=== PATIENT | female | born 1955 | race Caucasian/White ===

== ENCOUNTER 2024-02-02 06:27 | Day surgery (SDC) | payer MEDICARE, BC, SELFPAY ==
[2024-02-02] VITALS (9 sets, daily range): BP systolic 107–141; BP diastolic 70–80; PULSE 62–75; RESP 16–20; TEMP 37.1; O2SAT 97–100; BMI 27.4
[2024-02-02] MEDS: ETHYL CHLORIDE 1 APPLICATION 1 APPLIC TOPICAL (07:00)
[2024-02-02] MEDS: BUPIVACAINE 0.5% 30 ML INJECTION (07:00)
--- NOTE | 2024-02-02 07:17 | SUR.PREOP ---
SAME DAY SURGERY LOCAL INJECTION SITE VERIFICATION WAS PERFORMED BY SURGEON/PA AND PATIENT PRIOR TO LOCAL ANESTHETIC BEING INJECTED TO OPERATIVE SITE.
[2024-02-02] MEDS: NEOMYCIN/BACITRACIN/POLYMYXIN B 1 APPLIC TOPICAL (07:45)
--- NOTE | 2024-02-02 07:45 | PM.ORPRC ---
Procedure Note Date of procedure: 02/02/24 Procedure: PREOPERATIVE DIAGNOSIS: 1. Right carpal tunnel syndrome POSTOPERATIVE DIAGNOSIS: 1. Right carpal tunnel syndrome PROCEDURE: 1. Right open carpal tunnel release SURGEON: Quang Flores MD. OUTSIDE SALES ACCOUNT REPRESENTATIVE: LINDSEY Shields ANESTHESIA: Local anesthetic (50:50 mixture of 2% lidocaine with epi and 0.5% marcaine plain) - 10ml total IMPLANTS: None EBL: 2 mL TOURNIQUET: None COMPLICATIONS: None evident INDICATIONS: The patient is a pleasant 68-year-old female who has experienced right hand numbess/tingling affecting the radial 3.5 digits for multiple months. It has progressively gotten worse. Nonoperative management has been tried and failed, and therefore surgery was recommended. DESCRIPTION OF PROCEDURE: Following a thorough discussion of risks, benefits, and alternatives consent was obtained and the operative extremity was marked. The patient was brought to the operating room and placed supine on the operating table. Local anesthesia induction was undertaken in preop holding. No antibiotics were administered as this was planned to be a local case only. Proper time-out was performed identifying proper patient, site, and procedure. The operative extremity was prepped and draped in the appropriate sterile fashion using ChloraPrep. An incision was made in line with the radial border of the ring finger beginning 1 cm distal to the distal wrist crease and progressing for another 2.5cm distal. Caution was taken to stay proximal to Davis's cardinal line. Sharp incision through the skin, subcutaneous tissue, and palmar fascia was performed. The thenar musculature was bluntly elevated off the transverse carpal ligament. The ligament was directly visualized, and divided sharply with a 15 blade. This was released from its most proximal to the most distal extent. Metzenbaum scissor was also utilized to release the fascia extension proximally. We confirmed complete release of the transverse carpal ligament. Closure was performed with 4-O nylon in interrupted fashion. Soft dressings were applied, and the patient was transferred to the recovery room in stable condition. PLAN: 1. Encourage elevation of the operative extremity. 2. Range of motion of the fingers and hand/wrist as tolerated. 3. Ibuprofen/acetaminophen and/or oxycodone as needed for pain control. 4. Follow up with PA visit or nurse visit in 12-16 days for wound check and suture removal.
== END 2024-02-02 08:07 | disposition home or self-care (01) ==
PROVIDERS: PCP Family Medicine; Visit Provider Orthopaedic Surgery Sports Medicine
PROC: (CPT 64721; principal; 2024-02-02 07:30)
DX: G56.01 Carpal tunnel syndrome, right upper limb (principal)
CPT/HCPCS: 64721; J0665

== ENCOUNTER 2024-08-30 06:49 | Day surgery (SDC) | payer MEDICARE, BC, SELFPAY ==
[2024-08-30] VITALS (8 sets, daily range): BP systolic 104–128; BP diastolic 65–86; PULSE 61–69; RESP 16–20; TEMP 36.2–36.6; O2SAT 98–100; BMI 27.4
[2024-08-30] MEDS: BUPIVACAINE 0.5% 30 ML INJECTION (06:50)
[2024-08-30] MEDS: ETHYL CHLORIDE 1 APPLICATION 1 APPLIC TOPICAL (06:50)
--- OUTSIDE RECORDS SUMMARY | 2024-08-30 06:51 | XMS_ITS | Clinical Summary ---
Author Organization [employer] [facility] Address [place], [place] [address] Care Team Providers Care Dental Appliance Mechanic Name Role Phone AdamarisBrigitte alaniz MD Primary Care Provider Allergies No known active allergies Medications Medication Sig Dispensed Refills Start Date End Date Status ORDER - MEDICATION ORDER COMPOSER Take 1 tsp by mouth. OTC supplement, Azomite. 1 tsp daily. 0 02/28/2010 Active cholecalciferol (VITAMIN D) 1,000 unit capsule Take 1 capsule by mouth once daily. 0 10/10/2018 Active bylrsqhc-poacnuhvl-vif rocortisone (CORTISPORIN OTIC) otic suspensionIndications: Otitis externa, unspecified chronicity, unspecified laterality, unspecified type Place 3 Drops into both ears 3 times daily. 10 mL 12/19/2021 Active durable medical equipment (DME)Indications:Back pain, unspecified back location, unspecified back pain laterality, unspecified chronicity,Chronic left shoulder pain Massage therapy, once/month for back and shoulder pain 12 Each 12/23/2023 Active Active Problems Problem Noted Date Diagnosed Date Pap smear for cervical cancer screening 01/07/20 23 Overview (01/07/2023): Plan: Routine Screening Adjustment disorder 11/28/2019 Adenomatous colon polyp 01/05/2019 Overview (01/08/2023): Colonoscopy 12/2018 multiple large SSA, repeat in 6 months at [facility] Colonoscopy 05/2019 polyps, repeat in 3 years Colonoscopy 12/2022 SSA, repeat in 3 years, possible serrated polyposis Resolved Problems Problem Noted Date Diagnosed Date Resolved Date Adjustment disorder with mix ed anxiety and depressed mood 05/22/2014 11/28/2019 Adjustment disorder with mix ed anxiety and depressed mood 10/10/2008 04/07/2013 Other and unspecified ovarian cyst 01/14/2009 Immunizations Name Administration Dates Next Due COVID-19 vaccine (Jerry-J& J) PF, MDV 02/08/2021 COVID-19 vaccine (Moderna 100mcg/0.5mL) PF, MDV 09/23/2021 COVID-19 vaccine (Pfizer-Bio NTech 30mcg/0.3mL) 12YO+ BIVALENT PF, MDV 04/12/2023 COVID-19 vaccine (Pfizer-Bio NTech 30mcg/0.3mL) 12YO+ KD-SUCROSE PF, MDV 03/16/2022 Influenza Virus, Unspecified 08/19/2021 Influenza, IIV3 (Age >=3 years) 08/24/2011,08/29 Influenza, IIV4 08/25/2018,08/30/2014,09/04/2013 Influenza, IIV4 (=>6mos) MDV 08/21/2020, 08/25/2018,08/26/2017,2015,09/11/2015 Influenza, Inactivated AIIV4 (Age 65+ Years) Preserv Free 08/23/2023 Influenza, Injectable, Mdck, Quadrivalent, W/preservative 09/29/2022,08/19/2021 Pneumococcal Conj 20-valent (Prevnar 20) 12/21/2022 Td (Age >=7 Years) 12/29/2005 Tdap 12/19/2021,03/21/2012 Zoster (Shingrix-RZV, recombinant) 05/01/2019, Family History Medical History Relation Name Comments Good Health Brother 2 Cancer Father melanoma @ age 65 went to the colon Cancer-breast Maternal Aunt Cancer Maternal Grandmother ovarian Cancer-breast Maternal Grandmother Cancer-breast Mother age 63, 4x reo ccuarance Cancer-breast Other cousin Hypertension Sister 4 Thyroid Disease Sister 5 hypothyroid Good Health Sister 6 Cancer-ovarian No Family History Relation Name Status Comments Brother 1 Alive Brother 2 Father Maternal Aunt Maternal Grandmother Mother Alive Other cousin Alive Sister 1 Alive Sister 2 Alive Sister 3 Alive Sister 4 Sister 5 Sister 6 Social History Tobacco Use Types Packs/Day Years Used Date Smoking Tobacco: Never Smokeless Tobacco: Never Tobacco Cessation:Counseling Given: Yes Alcohol Use Standard Drinks/Week Comments Not Currently 20 (1 standard drink = 0.6 oz pu re alcohol) Stopped 08/2019 PHQ-2 Answer Date Recorded PHQ-2 TOTAL SCORE 0 12/23/2023 Social Connections Answer Date Recorded Frequency of Communication with Friends and Fami ly Not on file 12/22/2023 Financial Resource Strain Answer Date R ecorded Difficulty of Paying Living Expenses 3 12/21/2022 Difficulty of Paying Living Expenses Not on file 12/21/2022 Food Insecurity Answer Date Recorded Worried About Running Out of Food in the Last Ye ar 1 12/21/2022 Transportation Needs Answer Date Record ed Lack of Transportation (Medical) 1 12/21/2022 Housing Stability Answer Date Recorded Unable to Pay for Housing in the Last Year 1 12/21/2022 Sex and Gender Information Value Date Recorded Sex Assigned at Not on file Gender Identity Not on file Sexual Orientation Not on file Obstetrics History Last Filed Vital Signs Vital Sign Reading Time Taken Comments Blood Pressure 97/63 12/23/2023 7:58 AM DIRECTOR MED[facility] A[facility]AIRS Pulse 63 12/23/2023 7:58 AM DIRECTOR MED[facility] AFFAIRS Temperature 36.8 ??C (98.3 ??F) 03/15/2023 10:05 AM C DT Respiratory Rate 14 01/05/2023 3:55 PM [facility] MED[facility] AFFAIRS Oxygen Saturation 99% 12/23/2023 7:58 AM DIRECTOR MED[facility] AFFAIRS Inhaled Oxygen Concentration - - Weight 75.4 kg (166 lb 3.2 oz) 12/23/2023 7:58 A M [facility] Height 165.1 cm (5' 5) 12/23/2023 7:58 AM [facility] MED[facility]AIRS Body Mass Index 27.66 12/23/2023 7:58 AM DIRECTOR MEDICAL AFFAIRS Plan of Treatment Health Maintenance Due Date Last Done Comments COVID-19 vaccine series ( season) 2024 09/20/2023, 04/12/2023, 08/17/2022, Additional history exists Influenza for age 65+ 07/30/2024 08/23/2023 , 09/29/2022, 08/19/2021, Additional history exists BMI (ht and wt on same day) for age 18+ 12/23/2024 12/23/2023, 08/23/2023, 12/21/2022, Additional history exists Depression screening for age 12+ 12/23/2024 12/23/2023, 12/23/2023, 12/21/2022, Additional history exists Mammogram for age 45-75 12/23/2024 12/23/19 24, 12/21/2022, 12/17/2021, Additional history exists Medicare Wellness for age 65+ 12/23/2024 12/23/2023, 12/21/2022 Lipids for age 45-75 12/16/2025 12/16/2020, 08/18/2016, 07/19/2015, Additional history exists Colonoscopy through age 75 01/05/202601/05, 01/05/2023, 06/19/2019, Additional history exists Tetanus booster 12/19/2031 12/19/2021, 02/28, 12/29/2005 Hepatitis C screening for ag e 18-79 Completed 07/19/2015 Zoster (shingles) series for age 50+ Completed 05/01/2019, 01/06/2019 Tdap Completed 12/19/2021, 03/21/2012 DEXA/DXA scan for age 65+ Completed 12/21/2022 Pneumococcal series for age 65+ Completed 3 Procedures Procedure Name Priority Date/Time Associated Diagnosis Comments XR MAMMO NALINI BILAT SCREEN Routine 12/23/2023 7:20 AM DIRECTOR MED[facility] A[facility]AIRS Visit for screening mammogram COLONOSCOPY 01/05/2023 2:19 PM DIRECTOR MEDICAL AFFAIRS XR DXA BONE DENSITY 2 SITES AXIAL Routine 12/21/2022 11:45 AM DIRECTOR MEDICAL AFFAIRS Menopause LIPID PANEL W REFLEX MEASURED LDL Routine 12/16/2020 8:55 AM DIRECTOR MEDICAL AFFAIRS Lipid screening ANTI HCV Routine 07/19/2015 7:28 AM CDT Need for hepatitis C screening test from Last 3 Months or Most Recently Relevant to Health Maintenance Results * XR MAMMO NALINI BILAT SCREEN (12/23/2023 7:20 AM DIRECTOR MEDICAL AFFAIRS) Anatomical Region Laterality Modality BREASTS, Breast Left, Breast Right Bilateral Mammography Impressions 12/23/2023 2:06 PM DIRECTOR MEDICAL AFFAIRS ??There is no radiographic evidence for malignancy. ??Recommend annual mammograms. MAMMOGRAM ASSESSMENT: ??ACR 1 Negative PATIENTS: You will also receive a letter with your examination results in an easy to read format. ??If you have questions about your results, please contact your referring provider. Narrative 12/23/2023 2:06 PM DIRECTOR MEDICAL AFFAIRS For Patients: As a result of the Century Cures Act, medical imaging exams and procedure reports are released immediately into your electronic medical record. You may view this report before your referring provider. If you have questions, please contact your health care provider. XR MAMMO NALINI BILAT SCREEN [[id number]] CLINICAL HISTORY: ??This is an asymptomatic 68 y.o. patient. INDICATION FOR EXAM: Mammogram Screening. TECHNIQUE: CC & MLO views were obtained. ??This study was evaluated with the assistance of Computer-Aided Detection. Breast Tomosynthesis was used in interpretation. COMPARISON FILM: Yes 12/21/22 [facility] 12/17/21 [facility] FINDINGS: ??The breasts are heterogeneously dense, which may obscure small masses. There are no dominant masses, suspicious micro calcifications or areas of architectural distortion. Brigitte Bailon MD MAMMO * COLONOSCOPY (01/05/2023 2:19 PM DIRECTOR MEDICAL AFFAIRS) 01/05/2023 2:19 PM DIRECTOR MEDICAL AFFAIRS Narrative Transcriptions Omid Avila MD - 01/05/2023 3:46 PM CST Patient Name: Nubia Romo Procedure Date: 01/05/2023 Gender: Female Date of : 1955 Admit Type: Outpatient Procedure: Colonoscopy Proceduralist: Omid Avila MD , Gabrielle Rossi (Nurse), Addis Castillo (Nurse) Indications/Pre-Op Diagnosis: High risk colon cancer surveillance:Personal history of sessile serrated colon polyp (10mm or greater in size), High risk colon cancer surveillance: Personal history of Serrated Polyposis Syndrome Medications: Fentanyl 100 micrograms IV, Midazolam 2 mgIV Procedure Description: The patient had risks, benefits and alternatives explained to andgave informed consent. The patient had a stable cardiopulmonary status and judged an adequate candidate for conscious sedation. The [id number] was passed through the anus and advanced to the cecum, identified by appendiceal orifice and ileocecal valve. Thecolonoscopy was performed without difficulty. The patient tolerated the procedure well. The quality of the bowel preparation was good. The ileocecal valve, appendiceal orifice, and rectum were photographed. Complications: No immediate complications. Estimated Blood Loss & Specimen: Estimated blood loss: none. Specimen collected - Yes and sent to Laboratory Findings: The perianal and digital rectal examinations were normal. A 3 mm polyp was found in the cecum. The polyp was sessile. The polyp was removed with a cold snare. Resection was complete, but the polyp tissue was not retrieved. A 4 mm polyp was found in the ascending colon. The polyp was sessile. The polyp was removed with a cold snare. Resection and retrieval were complete. An 8 mm polyp was found in the distal ascending colon. The polyp was sessile. The polyp was removed with a hot snare. Resection andretrieval were complete. A 3 mm polyp was found in the rectum. The polyp was sessile. Thepolyp was removed with a cold snare. Resection and retrieval werecomplete. The exam was otherwise without abnormality. Impressions/Post-Op Diagnosis: - One 3 mm polyp in the cecum, removed with a cold snare. Complete resection. Polyp tissue not retrieved. - One 4 mm polyp in the ascending colon, removed with a cold snare. Resected and retrieved. - One 8 mm polyp in the distal ascending colon, removed with a hot snare. Resected and retrieved. - One 3 mm polyp in the rectum, removed with a cold snare. Resectedand retrieved. - The examination was otherwise normal. Recommendation: - Patient has a contact number available for emergencies. The signsand symptoms of potential delayed complications were discussed with the patient. Return to normal activities tomorrow. Written discharge instructions were provided to the patient. - Resume previous diet. - Continue present medications. - Await pathology results. - Repeat colonoscopy in 3 years for surveillance. - Avoid heavy lifting greater than 30 lbs., asprin/ nonsteroidal medicines, exercise and strenuous activity for 2 weeks. Moderate Sedation: A time out was performed before the procedure. Moderate (conscious) sedation was administered by the endoscopy nurse and supervised bythe endoscopist. The following parameters were monitored: oxygensaturation, heart rate, blood pressure, EKG, CO2, respiratory rate, adequacy of pulmonary ventilation and reponse to care. Please refer to the patient's medical record flowsheets and nursing notes for moderate sedation details. Total physician intraservice time was 32 minutes. Omid Avila MD 01/05/2023 3:46:08 PM This report has been signed electronically. Note Initiated On: 01/05/2023 2:19 PM Procedure Code(s): --- Professional --- 13361, Colonoscopy, flexible; with removalof tumor(s), polyp(s), or other lesion(s) bysnare technique Diagnosis Code(s): --- Professional --- D12.0, Benign neoplasm of cecum D12.2, Benign neoplasm of ascending colon D12.8, Benign neoplasm of rectum Z86.010, Personal history of colonicpolyps CPT copyright 2020 [employer]. All rights reserved. The codes documented in this report are preliminary and upon hospice social worker reviewmay be revised to meet current compliance requirements. Scope In: 3:02:09 PM Scope Withdrawal Time 0 hours 21 minutes 18 seconds Scope Out: 3:32:27 PM Omid Avila MD PROCEDURE ORD * (ABNORMAL) XR DXA BONE DENSITY 2 SITES AXIAL [07415.1] (12/21/2022 11:45 AM DIRECTOR MEDICAL AFFAIRS) Anatomical Region Laterality Modality Spine, HIPS, HIPL, HIPR Other Impressions 12/23/2022 11:19 AM DIRECTOR MEDICAL AFFAIRS Osteopenia. RECOMMENDATIONS: The National Osteoporosis Foundation recommends pharmacologic treatment for patients with T-scores of -2.5 or less, patients with prior history of fragility fractures, or patients with 10-year probability of greater than 3% at hips or greater than 20% of suffering major osteoporotic fractures. Recommend continued optimization of calcium and vitamin D intake through dietary means and/or supplementation and regular exercise. Repeat scan recommended in 3-5 years. Chelsea Nicole PA-C [facility] 12/23/2022 Narrative 12/23/2022 11:19 AM DIRECTOR MEDICAL AFFAIRS For Patients: Results are automatically released to your [facility] account once available, in compliance with federal regulations. This means that you may see your results before your provider has had a chance to review them. Please allow 2-3 business days for your provider to comment on the results. XR DXA Bone Mineral Density (BMD) EXAM LOCATION: [address] [address] PATIENT NAME: Nubia Romo DATE OF : 1955 EXAM DATE: 12/21/2022 REQUESTING PROVIDER: Brigitte Bailon MD GENDER AT : female HEIGHT: 5' 5 (12/21/2022) WEIGHT: ??161 lb 6.4 oz (12/21/2022) MENOPAUSAL STATUS: Postmenopausal RACE/ETHNICITY: White RISK FACTORS: Alcohol > 3 drinks/day (prior), History of Fragility Fracture (at a major site) and White Race CURRENT MEDICATION FOR BONE LOSS: NONE INDICATION: Menopause COMPARISON DATE(S): None DXA scans are compared to prior studies for a patient only when the two (or more) studies were performed on the same scanner. It is not possible to compare data generated on one scanner to data from another because there are not standards in DXA equipment. This applies even if the two scanners are made by the same day care aide. PROCEDURE: Dual-energy x-ray absorptiometry performed with routine technique. Reporting is completed in the form of a T-score. The T-score represents the standard deviation from peak bone mass based on young healthy adult. A Z-score is used for diagnosis in premenopausal women, and for men under the age of 50. FINDINGS: RESULT LUMBAR SPINE L1 - L4 (EXCLUDE L2) BMD: 0.933 g/cm2 T-Score: - 2.0 Z-Score: - 0.7 Change from prior: ??None RESULTS FEMUR Left femoral neck BMD: 0.861 g/cm2 T-Score: - 1.3 Z-Score: + 0.0 Change from prior: ??None Right femoral neck BMD: 0.835 g/cm2 T-Score: - 1.5 Z-Score: - 0.2 Change from prior: ??None Left hip BMD: 0.852 g/cm2 T-Score: - 1.2 Z-Score: - 0.2 Change from prior: ??None Right hip BMD: 0.884 g/cm2 T-Score: - 1.0 Z-Score: + 0.0 Change from prior: ??None WHO criteria: Normal: T-score at or above -1 SD Osteopenia: T-score between -1.1 and -2.4 SD Osteoporosis: T-score at or below -2.5 SD FRAX RISK CALCULATION (USED FOR OSTEOPENIA ONLY): 10-year probability of major osteoporotic fracture: 8.8%. 10-year probability of hip fracture: 0.9%. Brigitte Bailon MD DEXA * (ABNORMAL) LIPID PANEL W REFLEX MEASURED LDL (12/16/2020 8:55 AM DIRECTOR MEDICAL AFFAIRS) [facility] CHOLESTEROL,TOTAL 223(H) 100 - 199 mg/dL 12/16/2020 5:28 PM DIRECTOR MEDICAL AFFAIRS [facility] TRIGLYCERIDES 81 <150 mg/dL 12/16/2020 5:28 PM DIRECTOR MEDICAL AFFAIRS [facility] HDL CHOLESTEROL 78 >40 mg/dL 5:28 PM DIRECTOR MEDICAL AFFAIRS [facility] NON-HDL CHOLESTEROL 145(H) <145 mg/dl 12/16/2020 5:28 PM DIRECTOR MEDICAL AFFAIRS [facility] CHOL/HDL RATIO 2.86 <4.50 12/16/2020 5:28 PM DIRECTOR MEDICAL AFFAIRS [facility] LDL CHOLESTEROL 129 <=130 mg/dL 12/16/2020 5:28 PM DIRECTOR MEDICAL AFFAIRS [facility] PROVIDER ORDERED STATUS RANDOM 12/16/2020 5:28 PM DIRECTOR MEDICAL AFFAIRS [facility] Blood BLOOD SPECIMEN / Unknown Butterfly / Unknown 12/16/2020 8:55 AM DIRECTOR MEDICAL AFFAIRS 12/16/2020 8:58 AM DIRECTOR MEDICAL AFFAIRS Brigitte Bailon MD CHEMISTRY [facility] [address] [place] [address], * ANTI HCV [[id number]] (07/19/2015 7:28 AM CDT) HEPATITIS C ANTIBODY Non-Reacti ve Non-Reacti ve 07/19/2015 1:19 PM CDT [facility] Blood specimen (specimen) BLOOD SPECIMEN / Unknown Butterfly / Unknown 07/19/2015 7:28 AM CDT 07/19/2015 7:28 AM CDT Narrative [facility] - 07/19/2015 1:19 PM CDT Antibodies to HCV not detected; does not exclude the possibility of exposure to HCV. Brigitte Bailon MD SEND OUTS [facility] [address] [place] [address], from Last 3 Months or Most Recently Relevant to Health Maintenance Care Teams Dental Appliance Mechanic Relationship Specialty Start Date End Date Brigitte Bailon MD [address] [place] [address] PCP - General Family Practice 04/19/13
--- NOTE | 2024-08-30 07:33 | P.ORPRC_ITS ---
Procedure Note Date of procedure: 08/30/24 Procedure: PREOPERATIVE DIAGNOSIS: 1. Left carpal tunnel syndrome POSTOPERATIVE DIAGNOSIS: 1. Left carpal tunnel syndrome PROCEDURE: 1. Left open carpal tunnel release SURGEON: Quang Flores MD. LOGISTICS PLANNER: Jose Antonio Shaw PA-C ANESTHESIA: Local anesthetic (50:50 mixture of 1% lidocaine with epi and 0.5% marcaine plain) - 8ml total IMPLANTS: None EBL: 2 mL TOURNIQUET: None COMPLICATIONS: None evident INDICATIONS: The patient is a pleasant 68-year-old female who has experienced left hand numbess/tingling affecting the radial 3.5 digits for multiple months. It has progressively gotten worse. Nonoperative management has been tried and failed, and therefore surgery was recommended. DESCRIPTION OF PROCEDURE: Following a thorough discussion of risks, benefits, and alternatives consent was obtained and the operative extremity was marked. The patient was brought to the operating room and placed supine on the operating table. Local anesthesia induction was undertaken in preop holding. No antibiotics were administered as this was planned to be a local case only. Proper time-out was performed identifying proper patient, site, and procedure. The operative extremity was prepped and draped in the appropriate sterile fashion using ChloraPrep. An incision was made in line with the radial border of the ring finger beginning 1 cm distal to the distal wrist crease and progressing for another 2.5cm distal. Caution was taken to stay proximal to Davis's cardinal line. Sharp incision through the skin, subcutaneous tissue, and palmar fascia was performed. The thenar musculature was bluntly elevated off the transverse carpal ligament. The ligament was directly visualized, and divided sharply with a 15 blade. This was released from its most proximal to the most distal extent. Metzenbaum scissor was also utilized to release the fascia extension proximally. We confirmed complete release of the transverse carpal ligament. Closure was performed with 4-O nylon in interrupted fashion. Soft dressings were applied, and the patient was transferred to the recovery room in stable condition. PLAN: 1. Encourage elevation of the operative extremity. 2. Range of motion of the fingers and hand/wrist as tolerated. 3. Ibuprofen/acetaminophen and/or oxycodone as needed for pain control. 4. Follow up with PA visit or nurse visit in 12-16 days for wound check and suture removal.
== END 2024-08-30 07:55 | disposition home or self-care (01) ==
LOC: OR 06:50
PROVIDERS: PCP Family Medicine; Visit Provider Orthopaedic Surgery Sports Medicine
PROC: (CPT 64721; principal; 2024-08-30 07:15)
DX: G56.02 Carpal tunnel syndrome, left upper limb (principal)
CPT/HCPCS: 64721; J0665